=== PATIENT | female | born 1990 | race Caucasian/White ===

== ENCOUNTER 2018-03-20 12:39 | Emergency (ER) | payer SELFPAY | END 2018-03-20 13:06 | disposition home or self-care (01) | LOC: BURERS 12:39 | DX: H60.92 Unspecified otitis externa, left ear (principal); F17.210 Nicotine dependence, cigarettes, uncomplicated; I10 Essential (primary) hypertension | CPT/HCPCS: 99282 ==

== ENCOUNTER 2019-01-07 20:57 | Emergency (ER) | payer SELFPAY ==
[2019-01-07 21:26] LABS: #Basophils 0.1 thou/uL (0.0-0.2); #Eosinphils 0.3 thou/uL (0.0-0.7); #Lymphocytes 2.4 thou/uL (1.20-3.40); #Monocytes 0.6 thou/uL (0.11-0.59); #Neutrophils 8.5 thou/uL (1.40-6.50); %Basophils 0.7 % (0.0-1.0); %Eosinophils 2.2 % (0.0-10.0); %Lymphocytes 20.4 % (21.0-51.0); %Monocytes 5.4 % (0.0-10.0); %Neutrophils 71.3 % (42.0-75.0); Mean Corpuscular HGB CONC 35.3 g/dL (32.0-36.0); Mean Corpuscular Hemoglobin 31.9 pg (27.0-31.0); Mean Corpuscular Volume 90.4 fL (78.0-98.0); Mean Platelet Volume 7.5 fL (7.4-10.4); Platelet Count 263 thou/uL (130-400); RBC Distribution Width 11.1 % (11.5-14.5); Red Blood Cell (RBC) Count 4.38 mill/uL (4.20-5.40); White Blood Cell (WBC) Count 11.9 thou/uL (4.8-10.8)
[2019-01-07] MEDS ORDERED: Ketorolac Tromethamine 30 MG/ML VIAL ONE (21:28)
[2019-01-07 21:41] LABS: ALT (SGPT) 29 U/L (8-55); AST (SGOT) 17 U/L (5-34); Albumin 3.8 g/dL (3.5-5.0); Alkaline Phosphatase 84 U/L (40-150); Anion Gap 14 mmol/L (10-20); BUN (Urea Nitrogen) 14 mg/dL (7.0-18.7); Bilirubin, Total 0.3 mg/dL (0.2-1.2); Calc. Creatinine Clearance 0 mL/min (70-130); Calcium 8.8 mg/dL (7.8-10.44); Carbon Dioxide 24 mmol/L (22-29); Chloride 105 mmol/L (98-107); Estimated GFR-MDRD 90; Globulin 3.2 g/dL (2.4-3.5); Glucose 148 mg/dL (70-105); Lipase 45 U/L (8-78); Potassium 3.8 mmol/L (3.5-5.1); Sodium 139 mmol/L (136-145)
[2019-01-07] MEDS ORDERED: cefTRIAXone\\ROCEPHIN 1 GM VIAL ONE (21:46)
--- NOTE | 2019-01-07 22:05 | RAD ---
PORTABLE CHEST: Date: 01-07-19 FINDINGS: An AP portable film at 2113 shows a normal sized heart and clear lungs. No infiltrate or effusion was seen. The trachea is midline. IMPRESSION: No acute thoracic findings. POS: HOME
== END 2019-01-07 21:57 | disposition home or self-care (01) ==
LOC: BURERS 20:57
DX: J20.9 Acute bronchitis, unspecified (principal); R09.1 Pleurisy; I10 Essential (primary) hypertension; F41.9 Anxiety disorder, unspecified; F32.9 Major depressive disorder, single episode, unspecified; F17.210 Nicotine dependence, cigarettes, uncomplicated
CPT/HCPCS: 71045; 80053; 83690; 84484; 85025; 93005; 96374; 96375; J0696; J1885

== ENCOUNTER 2021-09-05 17:19 | Emergency (ER) | payer OTHER ==
[2021-09-05] MEDS ORDERED: Boostrix 0.5 ML (Tdap) VIAL ONE (17:35)
[2021-09-05] MEDS ORDERED: traMADol HCl 50 MG TAB ONE (17:35)
[2021-09-05] MEDS ORDERED: Sulfameth/Trimethoprim DS 800-160mg TAB ONE (17:35)
== END 2021-09-05 17:44 | disposition home or self-care (01) ==
LOC: BURERS 17:19
DX: L03.011 Cellulitis of right finger (principal); I10 Essential (primary) hypertension; F17.210 Nicotine dependence, cigarettes, uncomplicated; Z23 Encounter for immunization
CPT/HCPCS: 26010; 90471; 90715

== ENCOUNTER 2022-02-15 08:00 | Emergency (ER) | payer OTHER ==
[2022-02-15 08:57] LABS: Bilirubin Moderate (Negative); Blood, Urine Negative (Negative); Clarity Clear (Clear); Glucose, Urine (Dipstick) Negative (Negative); Ketone, Urine 40 mg/dL (Negative); Leukocyte Negative (Negative); Nitrite Negative (Negative); Protein, Urine (Dipstick) 30 mg/dL (Neg-Trace); pH, Urine 5.5 (5.0-9.0)
[2022-02-15 09:02] LABS: Specific Gravity, Urine 1.034 (1.002-1.036)
[2022-02-15 09:13] LABS: RBC/HPF None Seen HPF (0-3); WBC/HPF 0-3 HPF (0-3)
[2022-02-15 09:14] LABS: Bacteria/HPF 1+ HPF (None Seen)
== END 2022-02-15 09:18 | disposition home or self-care (01) ==
LOC: BURERS 08:00
DX: U07.1 COVID-19 (principal); I10 Essential (primary) hypertension; F17.210 Nicotine dependence, cigarettes, uncomplicated
CPT/HCPCS: 81003; 81015; 87804; 99283; U0003; U0005

== ENCOUNTER 2022-05-23 14:17 | Emergency (ER) | payer OTHER | END 2022-05-23 14:46 | disposition home or self-care (01) | LOC: BURERS 14:17 | DX: B34.9 Viral infection, unspecified (principal); I10 Essential (primary) hypertension; F17.210 Nicotine dependence, cigarettes, uncomplicated | CPT/HCPCS: 99283 ==